=== PATIENT | male | born 1965 | race Caucasian/White ===

== ENCOUNTER 2024-11-25 09:16 | Day surgery (SDC) | payer BC, SELFPAY ==
[2024-11-25] VITALS (8 sets, daily range): BP systolic 112–145; BP diastolic 75–95; PULSE 57–66; RESP 16–20; TEMP 36.2–36.5; O2SAT 98–100; BMI 27.0
--- NOTE | 2024-11-25 10:00 | PRE.ANES_ITS ---
ASA Classification* ASA Classification ASA Classification: 1 Assessment & Plan Anesthesia* Anesthesia Assessment Anesthesia Assessment: Discussed sedation and/or anesthesia options, risks, benefits, and alternatives with patient/parents/legal guardian/POA. Questions invited. The patient/parents/legal guardian/POA seems to understand and agrees to proceed with anesthesia plan. Reviewed the physical assessment, medical history, allergy history and patient home medications list prior to surgery/procedure/anesthetic and documented any changes. Performed airway and anesthesia risk assessments. Anesthesia Type Anesthesia Type: MAC History Source History Obtained from:: Patient and Chart Anesthesia Focused Assessment* Temperature: 97.6 F Pulse Rate: 66 Blood Pressure: 145/95 Respiratory Rate: 17 Pulse Ox: 100 Oxygen Delivery Method: Room Air Airway Assessment Mouth opens: >3 cm Mallampati Score: I Teeth Condition: Caps/Crowns (Patient is On #8. It is tight.) Neck Range of motion (ROM): Full ROM Focused Labs Anesthesia Preop lab: CBC WBC 5.8 K/mm3 (4.4-11.0) 07/07/15 11:34 07/07/15 RBC 5.34 M/mm3 (4.6-6.2) 07/07/15 11:34 07/07/15 Hgb 15.7 g/dl (13.0-16.5) 07/07/15 11:34 07/07/15 Hct 44.9 % (40-54) 07/07/15 11:34 07/07/15 Plt Count 186 K/mm3 (150-450) 07/07/15 11:34 07/07/15 CHEMISTRY Potassium 4.0 mmol/L (3.5-5.1) 07/08/15 09:18 07/08/15 Sodium 141 mmol/L (136-145) 07/08/15 09:18 07/08/15 BUN 17 mg/dL (7-18) 07/08/15 09:18 07/08/15 Creatinine 1.16 mg/dL (0.70-1.30) 07/08/15 09:18 07/08/15 Glucose 90 mg/dL (70-110) 07/08/15 09:18 07/08/15 COAG Pre-Assessment Diagnosis/Proposed Procedure Planned Operative Procedure(s): CSCOPE Anesthesia History Anesthesia History - manual plate filler: Anesthesia History - manual plate filler Hx Hospitalization No 11/24/24 10:35 Any Problems With Anesthesia No 11/24/24 10:35 Cholinesterase deficiency No 11/24/24 10:35 You/Your Family Experience No 11/24/24 10:35 fever (hyperthermia) with Relationship Recent Exposure to Contagious No 11/25/24 09:36 Disease Does patient have nerve No 11/24/24 10:35 stimulator Patient instructed to have device shut off --Does patient have Pacemaker No 11/25/24 09:36 or ICD? When Was Last Pacemaker Check QUESTION #4 FULL TEXT: You/Your Family Experience fever (hyperthermia) with Anesthesia Last Oral Intake Last Oral intake: Last Oral Intake NPO since 06:30 11/25/24 09:36 Meds taken in AM with sips of No 11/25/24 09:36 water? Meds patient instructed to take am of surgery Any additional information?: Yes NPO since: 07:00 (Patient had water at 7 AM.) PONV PONV - manual plate filler: PONV - manual plate filler Female No 11/24/24 10:35 HX of Motion Sickness No 11/24/24 10:35 HX of N/V After Surgery No 11/24/24 10:35 Non-Smoker Yes 11/24/24 10:35 Duration of Surgery greater No 11/24/24 10:35 than 60 minutes Number of Risk Factors 1 11/24/24 10:35 PONV Score Low Risk 11/24/24 10:35 Height & Weight Height & Weight: Anesthesia: Height & Weight Height 5 ft 11 in 11/25/24 09:36 Weight: 88 kg 11/25/24 09:36 Body Mass Index (BMI) 27.0 11/25/24 09:36 Respiratory Assessment Respiratory Assessment - manual plate filler: Respiratory Tract Infection Hx - manual plate filler Hx Respiratory Tract Infection No 11/24/24 10:35 STOP Sleep Apnea STOP Sleep Apnea - manual plate filler: STOP Sleep Apnea - manual plate filler Hx Hypertension No 11/24/24 10:35 Hx Sleep Apnea No 11/24/24 10:35 CPAP No 07/07/15 15:16 BIPAP No 07/07/15 15:16 Do you snore loudly (louder No 11/24/24 10:35 than talking or can be heard Do you often feel tired/ No 11/24/24 10:35 fatigued/ sleepy during daytime? Has anyone observed you stop No 11/24/24 10:35 breathing during sleep? STOP Results Negative 11/24/24 10:35 QUESTION #5 FULL TEXT : Do you snore loudly (louder than talking or can be heard through closed doors)? Tobacco Use History Tobacco Use History - manual plate filler: Tobacco Use History - manual plate filler Tobacco Use Smoking Status Never smoker 11/24/24 10:35 Hx Tobacco Use No 11/24/24 10:35 Years Smoking Packs Smoked per Day Smoking Cessation Date was within the last 15 years Hx Smoking Cessation Date Hx Smoking Cessation Counseling Hematologic Medial History Hematologic Hx - manual plate filler: Hematologic Medical Hx - certified rehabilitation counselor Hx of Blood Transfusion No 11/24/24 10:35 Hx of Transfusion in last 3 No 11/24/24 10:35 Months Date of Last Transfusion (if within last 3 months) Ever experience any problems No 11/24/24 10:35 with transfusion(s)? Specify any problems Hx of Preganancy in last 3 N/A 11/24/24 10:35 Months Nurse Filling Out Transfusion NBUCHER 11/24/24 10:35 & Questions: Date: 11/24/24 11/24/24 10:35 Time: 10:35 11/24/24 10:35 Patient unable to answer at this time (ie. confused, unrespo /Reproduction History /Reproductive History - manual plate filler: /Reproductive Hx- manual plate filler Hx Now No 11/24/24 10:35 Gestational Age (in weeks): EDC: Hx Hx Para Hx Section SAB No 11/24/24 10:35 PFSH Medical History (Updated 11/24/24 @ 10:38 by Teresa Nagel) Non-smoker History of stress test Hx of hemorrhoids Hx of colonic polyps Home Medications ?Medication ?Instructions ?Recorded ?Last Taken ?Type No Known/Unobtainable [No Known 5 Unknown History Home Medications] Allergy/AdvReac Type Severity Reaction Status Date / Time No Known Allergies Allergy Verified 11/25/24 09:36 Family History (Updated 09/24/24 @ 11:27 by Natalia Saavedra) Grandfather Colon cancer CAD (coronary artery disease) Mother Rheumatoid arthritis CAD (coronary artery disease) Father CAD (coronary artery disease) Diabetes Surgical History (Updated 11/24/24 @ 10:38 by Teresa Nagel) History of rotator cuff surgery Hx of colonoscopy Social History (Updated 09/24/24 @ 11:28 by Natalia Saavedra) household members: spouse current occupational status: employed Smoking Status: Never smoker alcohol intake: current substance use type: does not use Review of Systems (Anesthesia) ROS Narrative System reviewed and no additional complaints, except as documented.
--- NOTE | 2024-11-25 10:00 | PCM.HP.STD ---
[facility] - General General Date of Admission: 11/25/24 Date of Service: 11/25/24 Chief Complaint: Screening colonoscopy HPI Narrative ELLA PHILLIPS, is a 59 M who presents today for screening colonoscopy. He had a colitis back in 2014. He had a couple small benign polyps. He is not have any abdominal pain, chest pain or shortness of breath. He does not take any medicines on a daily basis. [facility] Medical History Non-smoker History of stress test Hx of hemorrhoids Hx of colonic polyps Home Medications ?Medication ?Instructions ?Recorded ?Last Taken ?Type No Known/Unobtainable [No Known 07/07/15 Unknown History Home Medications] Allergy/AdvReac Type Severity Reaction Status Date / Time No Known Allergies Allergy Verified 11/25/24 09:36 Family History Grandfather Colon cancer CAD (coronary artery disease) Mother Rheumatoid arthritis CAD (coronary artery disease) Father CAD (coronary artery disease) Diabetes Surgical History History of rotator cuff surgery Hx of colonoscopy Social History household members: spouse current occupational status: employed Smoking Status: Never smoker alcohol intake: current substance use type: does not use ROS Constitutional Constitutional: Denies fatigue, fever(s), poor appetite, weight gain or weight loss Gastrointestinal Gastrointestinal: Denies belching, bloating, change in bowel habits, change in stool character, chewing difficulty, coffee ground emesis, constipation, cramping, diarrhea, dyspepsia, dysphagia, early satiety, excessive flatus, fecal incontinence, heartburn, hematemesis, hematochezia, hemorrhoids, loose stools, melena, nausea, odynophagia, rectal bleeding, tenesmus, vomiting or weight changes Vital Signs Vital Signs Vital Signs: 11/25/24 09:36 11/25/24 09:36 Temperature 97.6 F L Temperature Source Temporal Pulse Rate 66 Respiratory Rate 17 Respiratory Pattern Normal Blood Pressure 145/95 H Blood Pressure Mean 111 Blood Pressure Source Monitor Blood Pressure Position Semi-Fowlers Blood Pressure Location Left Arm Pulse Ox 100 Oxygen Delivery Method Room Air Weight Weight: 194 lb 0.108 oz Body Mass Index (BMI) 27.0 Physical Exam Const alert, oriented x3, no apparent distress and healthy appearing General Appearance: cooperative GI normal to inspection, nondistended, normoactive bowel sounds, soft to palpation, non-tender and non-distended Percussion: normal to percussion Rectal Exam: deferred Assessment & Plan Assessment/Plan (1) Encounter for screening for malignant neoplasm of colon: PLAN: He will undergo screening colonoscopy. He was explained alternatives, risk and benefits include not withstanding bleeding, infection, sepsis, perforation, need for emergent urgent . He will have an ASA of 3.
--- NOTE | 2024-11-25 10:04 | PCM.POST.ANE ---
Anesthesia: Postop Eval I Current Vital Signs Temperature: 97.2 F Pulse Rate: 62 Blood Pressure: 115/77 Respiratory Rate: 20 Pulse Ox: 98 Oxygen Delivery Method: Room Air Assessment Airway patent: Yes Spontaneous unlabored respirations: Yes Mental status: Awake and Calm nausea: No Vomiting: No Anesthesia Complication: No Fluid Hydration Crystalloid volume administer (ml): 30 Total IV fluid infused: 30 Progress Note Anesthesia document: Postop Eval 1 completed: Yes
--- NOTE | 2024-11-25 10:15 | COLBX_PTH ---
PATIENT: ELLA PHILLIPS LOC: EN U#:[id number] AGE/SX: 59/M ROOM: RE11/25/[address]: Dr. Omar Camargo DO : 1965 BED: DIS: 11/25/2024 SPEC #: [id number] RECD: 11/25/24 13:11 STATUS: MARIANA RERika #: [id number] DANNY: 11/25/24 10:[address]: Omar Camargo DEPT: SURGICAL PATHOLOGY RECD BY: Anthony Dejesus ENTERED: 11/25/24 13:11 SP TYPE: COLON BX OTHR DR: Dr. Jonas Kumar DO Tissues: A - COLON BIOPSY Procedures: Surgery Specimen Level IV HEADER OPERATION: Colonoscopy, polyp biopsy PRE-OP DIAGNOSIS: Screening TISSUE SUBMITTED: A- Hepatic flexure polyp biopsy MICROSCOPIC DIAGNOSIS Hepatic flexure polyp, biopsy:Tubular Khushboo Cook MD, 12/04/2024 MICROSCOPIC DESCRIPTION Slides are reviewed. GROSS DESCRIPTION A. Received in fixative is one container labeled with the patient's name and designated Hepatic flexure polyp biopsy. The specimen consists of one irregular fragment of light leonardo soft tissue that measures 0.8 x 0.3 x 0.2 cm. The specimen is totally submitted in one cassette. MS/mr 11/25/2024 CPT:63776 , TC:1
--- NOTE | 2024-11-25 10:35 | OP.CCLET_ITS ---
11/25/2024 Jonas Kumar Re : Colonoscopy procedure for Patricio Vaca Vandanar José This procedure was performed on Monday, November 25, 2024. My impressions and recommendations are as follows: Impressions : - One 4 mm polyp at the hepatic flexure, removed with a cold biopsy forceps. Resected and retrieved. - Diverticulosis in the recto-sigmoid colon and in the sigmoid colon. Recommendations : - Discharge patient to home. - Resume previous diet. - Continue present medications. - Await pathology results. - Repeat colonoscopy in 5 years for surveillance. My findings are described in the full procedure note, which is enclosed. If I can be of further assistance, please feel free to contact me at . Sincerely, Omar Camargo, 11/25/2024 10:34:34 AM This report has been signed electronically.
--- NOTE | 2024-11-25 10:35 | OP.COLON_ITS ---
Patient Name: Patricio Vaca Procedure Date: 11/25/2024 10:05 AM Date of : 1965 Age: 59 Procedure: Colonoscopy Indications: Screening for colorectal malignant neoplasm Providers: DO Jd Mancera MD: Jonas Kumar Medicines: Monitored Anesthesia Care Patient Profile: This is a 59 year old male. Refer to note in patient chart for documentation of history and physical. Last Colonoscopy: several years ago. Complications: No immediate complications. Procedure: Pre-Anesthesia Assessment: - Prior to the procedure, a History and Physical was performed, and patient medications and allergies were reviewed. The patient is competent. The risks and benefits of the procedure and the sedation options and risks were discussed with the patient. All questions were answered and informed consent was obtained. Patient identification and proposed procedure were verified by the physician in the pre-procedure area. Mental Status Examination: alert and oriented. Airway Examination: normal oropharyngeal airway and neck mobility. Respiratory Examination: clear to auscultation. CV Examination: normal. Prophylactic Antibiotics: The patient does not require prophylactic antibiotics. Prior Anticoagulants: The patient has taken no anticoagulant or antiplatelet agents except for NSAID medication. ASA Grade Assessment: II - A patient with mild systemic disease. After reviewing the risks and benefits, the patient was deemed in satisfactory condition to undergo the procedure. The anesthesia plan was to use monitored anesthesia care (MAC). Immediately prior to administration of medications, the patient was re-assessed for adequacy to receive sedatives. The heart rate, respiratory rate, oxygen saturations, blood pressure, adequacy of pulmonary ventilation, and response to care were monitored throughout the procedure. The physical status of the patient was re-assessed after the procedure. After I obtained informed consent, the scope was passed under direct vision. Throughout the procedure, the patient's blood pressure, pulse, and oxygen saturations were monitored continuously. The Colonoscope was introduced through the anus and advanced to the ileocecal valve. The colonoscopy was performed with ease. The patient tolerated the procedure well. The quality of the bowel preparation was adequate. The ileocecal valve, appendiceal orifice, and rectum were photographed. Scope In: 10:15:52 AM Scope Withdrawal Time 0 hours 10 minutes 11 seconds Scope Out: 10:29:55 AM Total Procedure Duration Time 0 hours 14 minutes 3 seconds Findings: The perianal and digital rectal examinations were normal. A 4 mm polyp was found in the hepatic flexure. The polyp was sessile. The polyp was removed with a cold biopsy forceps. Resection and retrieval were complete. Verification of patient identification for the specimen was done. Estimated blood loss was minimal. A few small-mouthed diverticula were found in the recto-sigmoid colon and sigmoid colon. Impression: - One 4 mm polyp at the hepatic flexure, removed with a cold biopsy forceps. Resected and retrieved. - Diverticulosis in the recto-sigmoid colon and in the sigmoid colon. Recommendation: - Discharge patient to home. - Resume previous diet. - Continue present medications. - Await pathology results. - Repeat colonoscopy in 5 years for surveillance. Procedure Code(s): --- Professional --- 52277, Colonoscopy, flexible; with biopsy, single or multiple CPT copyright 2021 [employer]. All rights reserved. The codes documented in this report are preliminary and upon cushion filler review may be revised to meet current compliance requirements. Omar Camargo DO 11/25/2024 10:34:34 AM This report has been signed electronically. Number of Addenda: 0 Note Initiated On: 11/25/2024 10:05 AM
--- NOTE | 2024-11-25 14:14 | POSTOPAN2_ITS ---
Anesthesia Postop Eval I Sum Postop Eval Completion status Anesthesia document: Postop Eval 1 completed: Yes Anesthesia Postop Eval I Summary Anesthesia Postop Eval I Summary: Anesthesia Postop Eval I: Assessment Summary Airway patent Yes 11/25/24 10:38 [email or web address] Spontaneous unlabored Yes 11/25/24 10:38 SHAREPOINT [email or web address] respirations Mental status Awake,Calm 11/25/24 10:38 SHAREPOINT [email or web address] nausea No 11/25/24 10:38 SHAREPOINT [email or web address] Vomiting No 11/25/24 10:38 SHAREPOINT [email or web address] Anesthesia Postop Eval I: Fluid Summary Crystalloid volume administer 30 11/25/24 10:38 SHAREPOINT [email or web address] (ml) Colloids volume administered ( ml) Blood Product volume administered (ml) Total IV fluid infused 30 11/25/24 10:38 SHAREPOINT [email or web address] Anesthesia Postop Eval I: Summary Notes Anesthesia Complication No 11/25/24 10:38 SHAREPOINT [email or web address] Anesthesia Complication Comment: Post-operative progress note Anesthesia: Postop Eval II Evaluation Mental status: Awake Pain Level: 0 nausea: No Vomiting: No
--- NOTE | 2024-11-25 14:14 | PCM.POSTANE2 ---
Anesthesia Postop Eval I Sum Postop Eval Completion status Anesthesia document: Postop Eval 1 completed: Yes Anesthesia Postop Eval I Summary Anesthesia Postop Eval I Summary: Anesthesia Postop Eval I: Assessment Summary Airway patent Yes 11/25/24 10:38 BRANCH OPERATION EVALUATION [email or web address] Spontaneous unlabored Yes 11/25/24 10:38 BRANCH OPERATION EVALUATION MANAGER.[email or web address] respirations Mental status Awake,Calm 11/25/24 10:38 BRANCH OPERATION EVALUATION [email or web address] nausea No 11/25/24 10:38 BRANCH OPERATION EVALUATION MANAGER.[email or web address] Vomiting No 11/25/24 10:38 BRANCH OPERATION EVALUATION [email or web address] Anesthesia Postop Eval I: Fluid Summary Crystalloid volume administer 30 11/25/24 10:38 BRANCH OPERATION EVALUATION [email or web address] (ml) Colloids volume administered ( ml) Blood Product volume administered (ml) Total IV fluid infused 30 11/25/24 10:38 BRANCH OPERATION EVALUATION [email or web address] Anesthesia Postop Eval I: Summary Notes Anesthesia Complication No 11/25/24 10:38 BRANCH OPERATION EVALUATION [email or web address] Anesthesia Complication Comment: Post-operative progress note Anesthesia: Postop Eval II Evaluation Mental status: Awake Pain Level: 0 nausea: No Vomiting: No
== END 2024-11-25 11:12 | disposition home or self-care (01) ==
LOC: EN 09:18 → AC 09:47
PROVIDERS: PCP Family Medicine; Referring Provider Family Medicine; Visit Provider Internal Medicine Gastroenterology
PROC: 0DJD8ZZ Inspection of Lower Intestinal Tract, Via Natural or Artificial Opening Endoscopic (ICD-10-PCS; CPT 45378; principal; 2024-11-25 10:10)
DX: Z12.11 Encounter for screening for malignant neoplasm of colon (principal); K57.30 Diverticulosis of large intestine without perforation or abscess without bleeding; K63.5 Polyp of colon; Z86.0100 Personal history of colon polyps, unspecified
CPT/HCPCS: 45380; 88305; A4216; J2405